=== PATIENT | female | born 1990 | race African-American/Black ===

== ENCOUNTER 2018-12-23 22:19 | Emergency (ER) | payer OTHER ==
[~2018-12-23] VITALS: Ht 162.6 cm; Wt 90.7 kg
[2018-12-23 22:25] VITALS: TEMP 98.7
[2018-12-23 23:36] LABS: PLATELET COUNT 203 K/uL (152-353)
[2018-12-23 23:53] LABS: POTASSIUM 3.4 mmol/L (3.6-5.2)
[2018-12-24 01:00] VITALS: BP 126/79
== END 2018-12-24 01:01 | disposition home or self-care (01) ==
LOC: ED 22:19
PROVIDERS: Family Medicine
DX: Z33.1 Pregnant state, incidental (principal); E87.6 Hypokalemia
CPT/HCPCS: 36415; 80053; 81000; 85027; 99284